=== PATIENT | female | born 1955 | race Caucasian/White ===

== ENCOUNTER 2021-05-13 08:17 | Inpatient (IN) | payer MEDICARE, BC ==
[~2021-05-13] VITALS: Ht 165.1 cm; Wt 104.3 kg
[~2021-05-13 08:17] MED LIST: ASPIR-LOW81 MG PO; CALTRATE-600 W600 MG PO; CENTRUM SILVER1 TA1 PO; CLARITIN; DIOVAN160 MG PO; ECOTRIN325 MG PO; FISH OIL CONC1000 MG PO; HCTZ 25MG25 MG PO; LIPITOR20 MG PO; LORTAB 7.5/5001 TAB PO; METFORMIN HCL850 MG PO; MOTRIN 200200 MG/TAB PO; MUCINEX 60600 MG/TAB PO; [UNRECOGNIZED DRUG - OTHER]; femhrt
[2021-05-13 08:44] LABS: COLLECTION METHOD CLEAN CATCH
[2021-05-13 08:50] LABS: MUCOUS Present (NOT PRESENT); PH 5 (5-8); SQUAMOUS EPITHELIAL None Seen /hpf (0-10); URINE APPEARANCE Clear (CLEAR/HAZY); URINE BACTERIA None Seen (NONE SEEN); URINE BILIRUBIN Negative (NEGATIVE); URINE BLOOD Negative (NEGATIVE); URINE COLOR Yellow (YELLOW); URINE GLUCOSE Negative (NEGATIVE); URINE KETONE Negative (NEGATIVE); URINE LEUKOCYTE ESTERASE Negative (NEGATIVE); URINE NITRATE Negative (NEGATIVE); URINE PROTEIN(semi-quant) 2+ (NEGATIVE); URINE RBC 0-2 /hpf (0-2); URINE UROBILINOGEN Negative (NEGATIVE)
[2021-05-13 10:05] LABS: HEMATOCRIT 39.7 % (37.0-47.0); HEMOGLOBIN 13.9 g/dl (12.5-16.0); MEAN CELL VOLUME 85 fl (80.0-100.0); MEAN CORPUSCULAR HEMOGLOBIN 30 pg (27.0-31.0); MEAN CORPUSCULAR HGB CONC 35 g/dl (33.0-37.0); MEAN PLATELET VOLUME 12.8 fl (7.4-10.4); PLATELET COUNT 136 K/mm3 (130-400); RED BLOOD COUNT 4.66 M/mm3 (4.10-5.30); REDCELL DISTRIBUTION WIDTH-CV 13.7 % (11.5-14.5)
[2021-05-13 10:24] LABS: LYMPHOCYTE 5 % (20.0-51.0)
[2021-05-13 10:25] LABS: BAND 26 % (0-10); NEUTROPHILS 64 % (42.0-75.2); PLATELET ESTIMATE NORMAL (NORMAL)
[2021-05-13 10:27] LABS: ALBUMIN 3.9 gm/dL (3.4-4.8); BILIRUBIN,TOTAL 0.7 mg/dL (0.2-1.2); CALCIUM 9.1 mg/dL (8.4-10.2); CREATININE, serum 1.04 mg/dL (0.57-1.11); POTASSIUM 3.3 mmol/L (3.5-4.5); TOTAL PROTEIN 6.7 gm/dL (6.2-8.1)
[2021-05-13] MEDS ORDERED: GLUCOTROL 5M5 MG/TAB PO (11:55)
[2021-05-13] MEDS ORDERED: GLUCOPHAGE850 MG/TAB PO (11:55)
[2021-05-13] MEDS ORDERED: HCTZ 25MG TAB25 MG PO (11:56)
[2021-05-13] MEDS ORDERED: NORVASC 5MG5 MG/TAB PO (11:56)
[2021-05-13] MEDS ORDERED: LIPITOR 40MG TA40 MG PO (11:57)
[2021-05-13] MEDS ORDERED: BENICAR40 MG PO (11:58)
[2021-05-13] MEDS ORDERED: TOPROL XL 25MG25 MG PO (12:00)
[2021-05-13 17:21] LABS: TOTAL PROTEIN,CSF 95 mg/dL (15-45)
[2021-05-13] MEDS ORDERED: CLARITIN 1010 MG/TAB PO (18:12)
[2021-05-13] MEDS ORDERED: FLONASE NASAL S16 GM NS (18:12)
[2021-05-13] MEDS ORDERED: SALINE 45 ML45 ML NS (18:12)
[2021-05-13] MEDS ORDERED: OMEGA-3 1000 MG1 CAP PO (18:13)
[2021-05-13] MEDS ORDERED: OCUVITE1 TA1 PO (18:13)
[2021-05-13] MEDS ORDERED: MULTI VITAMINS1 TAB PO (18:14)
[2021-05-13] MEDS ORDERED: MAGNESIUM250 M1 PO (18:15)
[2021-05-13] MEDS ORDERED: CALCIUM 600MG+D1 TAB PO (18:15)
[2021-05-13] MEDS ORDERED: GLUCOSAMINE SU500 M2 PO (18:17)
[2021-05-13] MEDS ORDERED: TYLENOL 325MG325 MG PO (18:17)
[2021-05-13 20:00] VITALS: BP 147/55; PULSE 92; TEMP 98
[2021-05-13 20:07] VITALS: BP 147/55
[2021-05-13 20:16] LABS: CSF APPEARANCE CLEAR; CSF COLOR COLORLESS; CSF RBC < 1 /mm3 (0-0)
[2021-05-13 20:19] LABS: CSF MONONUCLEAR 100 % (70-100); CSF POLYMORPHONUCLEAR 0 % (0-6)
[2021-05-13 21:46] VITALS: BP 142/76
[2021-05-13 22:00] VITALS: TEMP 100.3
[2021-05-13 22:07] VITALS: BP 130/79
[2021-05-13 22:38] VITALS: BP 139/82
--- NOTE | 2021-05-13 23:29 | NUR ---
Patient arrived to ICU 6 at 2003. Patient is alert and orientated with steady mobility. Patient at bedside. All questions answered. Assessment complete and charted. Denies needs at this time. Call light in reach
[2021-05-14] VITALS (21 sets, daily range): BP systolic 86–154; BP diastolic 41–94; PULSE 82–106; TEMP 98.7–100.2; O2SAT 91–96
[2021-05-14] MEDS ORDERED: MELATIN 3 MG-11 TAB PO (04:24)
[2021-05-14 04:44] LABS: MEAN CELL VOLUME 86 fl (80.0-100.0); MEAN CORPUSCULAR HGB CONC 35 g/dl (33.0-37.0); MEAN PLATELET VOLUME 12.6 fl (7.4-10.4); PLATELET COUNT 119 K/mm3 (130-400); RED BLOOD COUNT 4.02 M/mm3 (4.10-5.30); REDCELL DISTRIBUTION WIDTH-CV 14.4 % (11.5-14.5)
[2021-05-14 04:59] LABS: HEMATOCRIT 34.4 % (37.0-47.0); HEMOGLOBIN 11.9 g/dl (12.5-16.0); MEAN CORPUSCULAR HEMOGLOBIN 30 pg (27.0-31.0)
[2021-05-14 05:00] LABS: ALBUMIN 3.1 gm/dL (3.4-4.8); BILIRUBIN,TOTAL 0.8 mg/dL (0.2-1.2); CALCIUM 7.9 mg/dL (8.4-10.2); CREATININE, serum 0.77 mg/dL (0.57-1.11); MAGNESIUM 1.4 mg/dL (1.6-2.6); POTASSIUM 3.1 mmol/L (3.5-4.5)
[2021-05-14 05:15] LABS: BAND 38 % (0-10); LYMPHOCYTE 5 % (20.0-51.0); NEUTROPHILS 52 % (42.0-75.2)
[2021-05-14 05:16] LABS: ANISOCYTOSIS 2+
--- NOTE | 2021-05-14 06:13 | NUR ---
Patient remained on levophed throughout the night. Patient is alert and orientated. Denies needs this AM. Call light in reach.
--- NOTE | 2021-05-14 07:03 | NUR ---
Report given to ROXANNE Mota
--- NOTE | 2021-05-14 10:22 | NUR ---
[facility] met with patient to discuss discharge planning. Patient lives in [place] with her , Roberto (ph#[phone]) and sees Dr. Okeefe for primary care. Patient obtains medications from [facility] with no difficulties and does not use any DME. Patient is independent with ADLS and plans to return home upon discharge. Patient believes she had DPOA-HC, but is not sure who she had designated. There is no copy in EMR and patient's legal next of kin would be her , Roberto. Discharge Plan: Home
[2021-05-14 11:09] LABS: HSV 2 DNA PCR QUAL Not Detected (())
--- NOTE | 2021-05-14 16:10 | NUR ---
PATIENT IS A&O. VSS ON TELE. DENIES PAIN AT THIS TIME. HEAD TO TOE ASSESSMENT COMPLETE. ORIENTED TO ROOM. CALL LIGHT IN REACH.
--- NOTE | 2021-05-14 22:57 | NUR ---
Patient assessed around 2134. Reported level 5 pain to back. Temp 100.2. Given PRN APAP. PICC to RUE with fluids and IV ABXs running per orders. Voices no questions, needs, or concerns at this time. In bed with call light within reach.
[2021-05-15] VITALS (7 sets, daily range): BP systolic 134–179; BP diastolic 53–78; PULSE 88–96; TEMP 97.7–98.7
--- NOTE | 2021-05-15 05:58 | NUR ---
Patient has had no further fevers this shift. Voices no questions, needs, or concerns at this time. IV ABXs continue per orders. Resting in bed with call light within reach.
[2021-05-15 07:03] LABS: POTASSIUM 3.6 mmol/L (3.5-4.5)
[2021-05-15 11:11] LABS: BASO # 0.1 K/mm3 (0.0-0.2); BASO % 0.6 % (0.0-2.0); EOS # 0.1 K/mm3 (0.0-0.7); EOS % 0.7 % (0-4.0); GRAN # 11.6 K/mm3 (1.4-6.5); GRAN % 86.4 % (42.2-75.2); HEMOGLOBIN 11.6 g/dl (12.5-16.0); LYMPH % 7.5 % (20.0-51.0); MEAN CORPUSCULAR HEMOGLOBIN 30 pg (27.0-31.0); MEAN CORPUSCULAR HGB CONC 33 g/dl (33.0-37.0); MEAN PLATELET VOLUME 13.8 fl (7.4-10.4); MONO # 0.5 K/mm3 (0.1-0.6); PLATELET COUNT 103 K/mm3 (130-400); REDCELL DISTRIBUTION WIDTH-CV 15.1 % (11.5-14.5)
[2021-05-15 11:13] LABS: CALCIUM 8.2 mg/dL (8.4-10.2); CREATININE, serum 0.67 mg/dL (0.57-1.11); POTASSIUM 3.7 mmol/L (3.5-4.5)
[2021-05-15 11:17] LABS: HEMATOCRIT 35.3 % (37.0-47.0); MEAN CELL VOLUME 91 fl (80.0-100.0)
--- NOTE | 2021-05-15 23:37 | NUR ---
Patient assessed around 1999. Alert and oriented, and able to make needs known. Denies having pain and discomfort. Indwelling resendez catheter D/C'd per orders. Telemetry D/C'd per orders. Patient voices no questions, needs, or concerns at this time. In bed with call light within reach.
[2021-05-16 04:18] VITALS: BP 130/84; PULSE 99; TEMP 97.6
--- NOTE | 2021-05-16 06:02 | NUR ---
Patient has been resting in bed with call light within reach. Has denied pain and discomfort. Continues on IV ABXs per orders. Voices no questions, needs, or concerns at this time. In bed with call light within reach.
[2021-05-16 06:51] LABS: BASO # 0.1 K/mm3 (0.0-0.2); BASO % 0.7 % (0.0-2.0); EOS # 0.1 K/mm3 (0.0-0.7); EOS % 1.1 % (0-4.0); GRAN # 6.5 K/mm3 (1.4-6.5); GRAN % 78.3 % (42.2-75.2); HEMOGLOBIN 11.5 g/dl (12.5-16.0); LYMPH # 1.1 K/mm3 (1.2-3.4); LYMPH % 13.4 % (20.0-51.0); MEAN CELL VOLUME 88 fl (80.0-100.0); MEAN CORPUSCULAR HEMOGLOBIN 29 pg (27.0-31.0); MEAN CORPUSCULAR HGB CONC 33 g/dl (33.0-37.0); MEAN PLATELET VOLUME 13.5 fl (7.4-10.4); MONO # 0.5 K/mm3 (0.1-0.6); MONO % 5.4 % (1.7-9.3); PLATELET COUNT 109 K/mm3 (130-400); RED BLOOD COUNT 3.91 M/mm3 (4.10-5.30); REDCELL DISTRIBUTION WIDTH-CV 14.4 % (11.5-14.5)
[2021-05-16 07:01] LABS: HEMATOCRIT 34.4 % (37.0-47.0)
[2021-05-16 07:17] LABS: CALCIUM 9.3 mg/dL (8.4-10.2); CREATININE, serum 0.67 mg/dL (0.57-1.11); POTASSIUM 3.9 mmol/L (3.5-4.5)
[2021-05-16 08:27] VITALS: BP 147/58; PULSE 87; TEMP 98.4
--- NOTE | 2021-05-16 09:32 | NUR ---
PT ASSESSED. NO COMPLAINTS OF PAIN OR DYSPNEA. NO SIGNS OR SYMPTOMS OF DISTRESS. CALL LIGHT WITHIN REACH
[2021-05-16 11:29] VITALS: BP 176/80; PULSE 92; TEMP 97.6
[2021-05-16 15:23] VITALS: BP 182/75; PULSE 95; TEMP 98
[2021-05-16 20:21] VITALS: BP 154/79; PULSE 95; TEMP 97.6
--- NOTE | 2021-05-16 22:24 | NUR ---
Patient assessed around 2100. Alert and oriented x 4, and able to make needs known. Denies having pain and discomfort at this time. PICC to RUE. 3+ edema RLE, 2+ LLE. Voices no questions, needs, or concerns at this time. In bed with call light within reach.
[2021-05-17] VITALS (8 sets, daily range): BP systolic 117–178; BP diastolic 48–87; PULSE 74–90; TEMP 97.5–99.2
--- NOTE | 2021-05-17 05:59 | NUR ---
Patient has denied having pain and discomfort this shift. Received scheduled ABX per orders. Voices no questions, needs, or concerns at this time. In bed with call light within reach.
--- NOTE | 2021-05-17 09:07 | NUR ---
PT ASSESSED. NO COMPLAINTS OF PAIN OF PAIN OR DYSPNEA/ CALL LIGHT WITHIN REACH
[2021-05-17 10:04] LABS: HEMOGLOBIN 11.7 g/dl (12.5-16.0); MEAN CELL VOLUME 87 fl (80.0-100.0); MEAN CORPUSCULAR HEMOGLOBIN 29 pg (27.0-31.0); MEAN CORPUSCULAR HGB CONC 33 g/dl (33.0-37.0); MEAN PLATELET VOLUME 13.5 fl (7.4-10.4); PLATELET COUNT 121 K/mm3 (130-400); RED BLOOD COUNT 4.04 M/mm3 (4.10-5.30); REDCELL DISTRIBUTION WIDTH-CV 14.1 % (11.5-14.5)
[2021-05-17 10:05] LABS: HEMATOCRIT 35.2 % (37.0-47.0)
[2021-05-17 10:13] LABS: ALBUMIN 3.1 gm/dL (3.4-4.8); CALCIUM 9.1 mg/dL (8.4-10.2); CREATININE, serum 0.67 mg/dL (0.57-1.11); POTASSIUM 3.3 mmol/L (3.5-4.5); TOTAL PROTEIN 6.5 gm/dL (6.2-8.1)
[2021-05-17 14:08] LABS: BAND 2 % (0-10); EOSINOPHIL 2 % (0-4); LYMPHOCYTE 24 % (20.0-51.0); NEUTROPHILS 63 % (42.0-75.2)
[2021-05-17 14:09] LABS: PLATELET ESTIMATE DECREASED (NORMAL)
--- NOTE | 2021-05-17 20:00 | NUR ---
Report received, assumed care for scene shifter. Assessment complete. A&Ox4. Denies pain/nausea/shortness of breath. VS remain stable. PICC to right upper arm flushes without difficulty. Zosyn/potassium currently infusing. NC WNL. Noted to have BLE extremity edema-RLE-3+/LLE-4+. LLE with warmth/redness. Plan of care discussed for this shift to include meds/calling for questions/concerns/ultrasound in AM. Verbalizes understanding. Call light in reach. Will monitor.
--- NOTE | 2021-05-18 00:30 | NUR ---
Resting eyes closed. No s/s of pain or discomfort noted.
[2021-05-18 04:54] VITALS: BP 177/71; PULSE 80; TEMP 98.4
[2021-05-18 05:30] VITALS: BP 144/70
--- NOTE | 2021-05-18 06:31 | NUR ---
Rested off and on this shift. Remained afebrile. Denied pain/nausea/shortness of breath. VS stable. Plan for venous duplex this am. Denies questions/concerns. Call light in reach. Will monitor.
[2021-05-18 07:53] LABS: PATHOLOGY DIFF REVIEW OK
[2021-05-18] MEDS ORDERED: AMOXICILLIN 8751 TAB PO (08:24)
[2021-05-18 08:34] VITALS: BP 167/63; PULSE 83; TEMP 97.8
--- NOTE | 2021-05-18 09:01 | NUR ---
Blood sugar was reported as 132, but is not uploading to [facility] from the glucometer.
[2021-05-18] MEDS ORDERED: VALTREX1 GM PO (10:04)
--- NOTE | 2021-05-18 11:02 | NUR ---
Patient doing well this morning. Plan is for patient to discharge home. Kristi notified that PICC needs to be removed; This will be done after the patient's zosyn is done running.
[2021-05-18 11:30] VITALS: BP 142/80; PULSE 88; TEMP 98.1
--- NOTE | 2021-05-18 15:11 | NUR ---
Presented patient with MCR IM form. Education provided to the patient and signature witnessed. Copy placed in the patient's chart and original provided back to the patient.
--- NOTE | 2021-05-18 16:31 | NUR ---
Patient discharged home and escorted out by [facility]. PICC was removed by Kristi Macias RN. Patient edcuation discussed and understanding was verbalized.
== END 2021-05-18 16:30 | disposition home or self-care (01) | DRG 871 ==
LOC: COL.ER 08:17 → ICU 14:24 → MEDICAL 05-14 16:10
PROVIDERS: Personal Emergency Response Attendant; Physician Assistant; ADMIT Internal Medicine
PROC: 009U3ZX Drainage of Spinal Canal, Percutaneous Approach, Diagnostic (ICD-10-PCS; principal; 2021-05-13)
PROC: 02HV33Z Insertion of Infusion Device into Superior Vena Cava, Percutaneous Approach (ICD-10-PCS; 2021-05-13)
DX: A40.9 Streptococcal sepsis, unspecified (principal); R65.21 Severe sepsis with septic shock; G93.41 Metabolic encephalopathy; K81.1 Chronic cholecystitis; E11.9 Type 2 diabetes mellitus without complications; I07.1 Rheumatic tricuspid insufficiency; I10 Essential (primary) hypertension; E83.42 Hypomagnesemia; Z20.822 Contact with and (suspected) exposure to COVID-19; E87.6 Hypokalemia; E78.5 Hyperlipidemia, unspecified; Z79.84 Long term (current) use of oral hypoglycemic drugs; Z88.8 Allergy status to other drugs, medicaments and biological substances
CPT/HCPCS: 99223-AI; 99232-AI; 99233-AI; 99239; C1751; C9113; J0692; J0696; J1650; J1815; J1940; J2543; J3370; J3475; J3480; J7030; J7040; J7050; J7060; Q9967

== ENCOUNTER → 2021-05-21 | Outpatient (CLI) | payer MEDICARE, BC ==
[~2021-05-21] MED LIST changes: +AMOXICILLIN 8751 TAB PO; +BENICAR40 MG PO; +CALCIUM 600MG+D1 TAB PO; +CLARITIN 1010 MG/TAB PO; +FLONASE NASAL S16 GM NS; +GLUCOPHAGE850 MG/TAB PO; +GLUCOSAMINE SU500 M2 PO; +GLUCOTROL 5M5 MG/TAB PO; +HCTZ 25MG TAB25 MG PO; +LIPITOR 40MG TA40 MG PO; +MAGNESIUM250 M1 PO; +MELATIN 3 MG-11 TAB PO; +MULTI VITAMINS1 TAB PO; +NORVASC 5MG5 MG/TAB PO; +OCUVITE1 TA1 PO; +OMEGA-3 1000 MG1 CAP PO; +SALINE 45 ML45 ML NS; +TOPROL XL 25MG25 MG PO; +TYLENOL 325MG325 MG PO; +VALTREX1 GM PO
[2021-05-21 16:22] LABS: CALCIUM 9.9 mg/dL (8.4-10.2); CREATININE, serum 0.76 mg/dL (0.57-1.11); MAGNESIUM 1.8 mg/dL (1.6-2.6); POTASSIUM 3.9 mmol/L (3.5-4.5)
== END ==
LOC: COL.LAB 15:26
DX: E87.6 Hypokalemia (principal)